=== PATIENT | female | born 1995 | race Caucasian/White ===

== ENCOUNTER 2016-06-07 17:12 | Emergency (ER) | payer SELFPAY | END 2016-06-07 19:30 | disposition home or self-care (01) | LOC: ER 17:12 | DX: L02.412 Cutaneous abscess of left axilla (principal); I10 Essential (primary) hypertension ==

== ENCOUNTER 2016-07-28 06:52 | Emergency (ER) | payer SELFPAY | END 2016-07-28 08:40 | disposition home or self-care (01) | LOC: ER 06:52 | DX: K80.50 Calculus of bile duct without cholangitis or cholecystitis without obstruction (principal); I10 Essential (primary) hypertension | CPT/HCPCS: 36415; 96374; 96375; J1885 ==